=== PATIENT | male | born 1970 | race Caucasian/White ===

== ENCOUNTER 2025-03-12 23:29 | Emergency (ER) | payer MEDICAID, SELFPAY ==
[2025-03-12 23:29] VITALS: BP 147/92; PULSE 99; RESP 18; TEMP 36.8; O2SAT 99; BMI 31.6
--- NOTE | 2025-03-13 00:01 | RAD_ITS ---
PROCEDURE: ANKLE MIN 3 VIEWS 03/13/2025 REASON FOR EXAM: PAIN TECHNIQUE: ANKLE MIN 3 VIEWS Laterality: Left COMPARISON: None. FINDINGS: Soft tissue edema and swelling overlying the medial malleolus. Calcaneal spur formation. Enthesophyte formation at the calcaneal insertion of Achilles tendon. Normal visualized distal tibia and medial malleolus. Normal visualized distal fibula and lateral malleolus. Normal tibiotalar articulation and ankle mortise. Normal visualized talus. Normal visualized calcaneus. The visualized subtalar, talonavicular, calcaneocuboid and tarsal articulations are normal. RAD/Ankle min 3 Views IMPRESSION: Soft tissue edema and swelling overlying the medial malleolus. No radiographic evidence of an acute bone abnormality. Reading Location: [facility]
[2025-03-13 00:13] LABS: Hematocrit 42.3 % (40-54); Hemoglobin 14.5 g/dL (13.0-16.5); Immature Granulocytes Count 0.030 X10^3/uL (0.0-0.0); Mean Corp Hgb Conc 34.3 g/dL (32-36); Mean Corpuscular Volume 99.1 fL (80-94); Mean Platelet Vol. 9.0 fl (6.2-12.0); NRBC Flagged by Analyzer 0 % (0-5); Platelet Count 239 K/mm3 (150-450); RBC Distribution Width CV 12.6 % (11.6-14.6); RBC Distribution Width SD 45.7 fl (35.1-43.9); Red Blood Count 4.27 M/mm3 (4.6-6.2); White Blood Count 13.9 K/mm3 (4.4-11.0)
--- NOTE | 2025-03-13 00:28 | EX.ED.DYSGE1 ---
HPI History of Present Illness Chief Complaint: Edema Informant: patient Narrative Narrative: Patient is a 55-year-old male who reports that he has had left leg swelling for multiple years. He states he has had previous ultrasounds of the leg to rule out blood clot. He states that over the last few days he has had bilateral ankle pain that is worse with ambulation. He states that there has been no recent trauma. He denies any fevers or chills. He states that the swelling overall is at baseline if not slightly improved and he denies any recent procedures or injections. However because of the increased pain to both ankles he presents for evaluation [facility] Medical History Varicose vein of leg Medical History no medical history Home Medications ?Medication ?Instructions ?Recorded ?Last Taken ?Type amoxicillin 875 mg-potassium 1 tab PO BID 7 days #14 tabs 03/13/25 Unknown Rx clavulanate 125 mg tablet oxycodone-acetaminophen 5 mg-325 1 tab PO Q6H PRN pain 3 days #12 03/13/25 Unknown Rx mg tablet (Percocet) tabs Allergy/AdvReac Type Severity Reaction Status Date / Time No Known Allergies Allergy Verified 03/12/25 23:30 Social History Smoking Status: Current every day smoker tobacco type: cigarettes ROS ROS ED Constitutional Constitutional ED: Denies chills or fever(s) ENT ENT ED: Denies sore throat Cardiovascular Cardiovascular: Denies chest pain Respiratory/Chest Respiratory/Chest: Denies cough or dyspnea Gastrointestinal Gastrointestinal: Denies abdominal pain, diarrhea, nausea or vomiting Musculoskeletal Musculoskeletal: Reports other Details: Positive bilateral ankle pain and leg pain Positive bilateral leg swelling Integumentary Denies Abrasions or rash Neurologic Neurologic: Denies headache(s) Hematologic/Lymphatic Hematologic/Lymphatic: Denies easy bleeding or easy bruising EXAM Physical Exam Const Vital Signs: 03/12/25 23:29 03/12/25 23:54 03/13/25 01:00 Temperature 98.2 F Temperature Source Temporal Pulse Rate 99 70 Respiratory Rate 18 18 Respiratory Effort Normal Non-Labored Respiratory Pattern Normal Blood Pressure 147/92 H 144/92 H Blood Pressure Mean 110 109 Pulse Ox 99 97 Oxygen Delivery Method Room Air Room Air 03/13/25 02:00 Temperature Temperature Source Pulse Rate 70 Respiratory Rate 18 Respiratory Effort Respiratory Pattern Blood Pressure 121/64 H Blood Pressure Mean 83 Pulse Ox 97 Oxygen Delivery Method Room Air Positive well nourished and well developed General Appearance ED: well developed; Negative for pallor HEENT HEENT Narrative: Normocephalic atraumatic Eyes PERRL and EOMs intact bilaterally General Eye ED: Negative for scleral icterus Neck supple and no JVD Resp normal respiratory effort Resp Narrative: Breath sounds are diminished throughout with faint expiratory wheeze and rhonchi in the bilateral bases consistent with history of smoking However no signs of respiratory distress Cardio regular rate and regular rhythm GI normal to inspection, nondistended, normoactive bowel sounds, non-tender, non-distended and no masses GI Narrative: No organomegaly or fluid wave noted Auscultation: normoactive bowel sounds Palpation: soft Extremity Extremity Narrative: Patient has +3 pitting edema to the left lower extremity and +1 to the right. Patient does state that this is chronic in nature. Negative Homans' sign bilaterally All compartments are soft and compressible going against compartment syndrome There is no obvious signs of long bone injury such as bony deformity or joint effusion No overlying erythema or warmth to suggest cellulitis abscess or gout No lymphangitic streaking Capillary refill is less than 3 seconds bilaterally Neuro oriented x3, CN's II-XII intact bilaterally and no sensory deficits noted Sensorium / Orientation: alert Psych mental status grossly normal Skin no rashes or lesions noted and no wounds General Skin Exam: Negative for jaundice or pallor MDM MDM MDM Narrative Medical decision making narrative: Patient arrived to ER mildly hypertensive otherwise with stable vitals. She reported years of leg swelling with the left being worse than the right. However now he reports that there is increased swelling to the right leg and also he has had bilateral ankle pain without trauma. History and exam is most consistent with lymphedema. In order to rule out cirrhosis/ascites acute kidney injury or congestive heart failure basic labs were obtained. The patient denies any recent trauma or procedures and he does not have overlying erythema or warmth going against gout cellulitis or abscess and in order to ensure there is no signs of osteomyelitis or Charcot joint and x-ray was obtained. X-ray revealed no acute finding other than soft tissue swelling which is present on physical exam. The patient's white blood cell count is elevated at 13.9 and his lactic is slightly bumped at 2.7 but his ESR and CRP are normal. Moreover he does not have hypotension tachycardia or fever. The physical exam does not show redness or asymmetric warmth or lymphangitic streaking or crepitance. And range of motion is still present at the joint. Therefore this time I do not feel he has a septic joint and as he does not have an effusion on x-ray there is no fluid to tap. The physical exam also does not suggest gout as the pain is bilateral and there is no overlying soft tissue changes. In order to rule out DVT I will order a venous duplex but is not able to be performed at this time at night. As he states he has had ultrasounds before that do not show blood clot and at this time he denies recent travel surgery hormone use or even previous history of DVT/PE I do not feel there is need for anticoagulation but will order an outpatient venous duplex to ensure there is no DVT as the cause of his increased pain. In order to to ensure there is no developing infection I will place him on Augmentin based on his elevated white blood cell count. But as his ESR and CRP are normal his vitals are stable and he does not have outward findings of infection or x-ray changes to suggest osteomyelitis I do not feel there is need for emergent podiatry or orthopedic consultation. The patient was advised to follow-up with the family doctor to discuss referral to the lymphedema clinic as this is the most likely cause of his swelling but as he is hemodynamically stable there is no need for further intervention in the hospital and is otherwise safe for discharge. History & Record Review Discussion w/independent historian: Patient Lab Data Attestation: I reviewed the patient's lab results. Labs: Laboratory Results - last 24 hr 03/13/25 03/13/25 00:02 01:12 WBC 13.9 H RBC 4.27 L Hgb 14.5 Hct 42.3 MCV 99.1 H MCH 34.0 H MCHC 34.3 RDW Std Deviation 45.7 H RDW Coeff of Uma 12.6 Plt Count 239 MPV 9.0 Immature Gran % (Auto) 0.200 Neut % (Auto) 75.2 H Lymph % (Auto) 17.1 L Tripp % (Auto) 6.9 Eos % (Auto) 0.1 Baso % (Auto) 0.5 Absolute Neuts (auto) 10.4 H Absolute Lymphs (auto) 2.37 Nucleated RBC % 0 ESR 1 Sodium 142 Potassium 3.7 Chloride 106 Carbon Dioxide 24.7 Anion Gap 12 BUN 20 H Creatinine 1.03 Estim Creat Clear Calc 108.18 Est GFR (MDRD) Non-Af 85 BUN/Creatinine Ratio 19.2 Glucose 167 H Lactic Acid 2.7 H* Uric Acid 5.3 Calcium 9.2 Total Bilirubin 0.41 Direct Bilirubin 0.19 AST 26 ALT 14 Alkaline Phosphatase 84 C-React Prot Ext Range < 3.00 NT pro BNP II 298 Total Protein 6.3 Albumin 3.9 Globulin 2.3 Radiography Diagnostic Testing: Clinical Impression(s) from Imaging Studies Ankle X-Ray 03/13/25 00:01 IMPRESSION: Soft tissue edema and swelling overlying the medial malleolus. No radiographic evidence of an acute bone abnormality. Reading Location: [place] [id number] Left ankle x-rays interpreted by the emergency medicine physician reveals soft tissue swelling but no acute fracture or dislocation or joint effusion or moth-eaten appearance of the bone to suggest osteomyelitis Discharge Plan Triage Chief Complaint: Edema ED Provider: Paulie Cummings Dx/Rx/DC Orders Clinical Impression: Lymphedema, Tobacco abuse Instructions: ED Lymphedema Prescriptions: New amoxicillin-pot clavulanate 875-125 mg tablet 1 tab PO BID 7 Days Qty: 14 0RF oxycodone-acetaminophen [Percocet] 5-325 mg tablet 1 tab PO Q6H PRN (Reason: pain) 3 Days Qty: 12 0RF Other Ambulatory Orders: Venous Duplex US - Emiliano Extrem (Stat) Facility: [facility] - Location: [facility] Ordered By: Dr. Paulie Cummings Primary Care Provider: Care Physician,No Primary Referrals: Khurram Murphy MD [Non-Staff] - Activity Restrictions/Additional Instructions: Your workup today shows no sign of liver failure kidney failure or heart failure as the cause of your swelling. Based on the fact that this has been ongoing for multiple years the swelling is most likely from a disease process known as lymphedema. Discussed referral to the lymphedema clinic with your family doctor. There are no obvious findings of gout or soft tissue infection such as cellulitis or septic joint but with your white count being slightly elevated please take the antibiotic as directed in case there is developing infection that is not presented yet. Please obtain your outpatient venous duplex to ensure there is no blood clot either. Return to the ER should you have any further concerns such as worsening swelling development of unilateral redness or fever Print Language: Georgian Disposition Disposition: Home, Self Care Discharge Date/Time: 03/13/25 02:54
[2025-03-13 01:00] VITALS: BP 144/92; PULSE 70; RESP 18; O2SAT 97
[2025-03-13 01:11] LABS: AST(SGOT) 26 U/L (<=37); Alanine Aminotransfer ALT/SGPT 14 U/L (<=46); Albumin, Serum 3.9 g/dL (3.5-5.0); Alkaline Phosphatase 84 U/L (40-129); Anion Gap 12 (5-15); BUN 20 mg/dL (4-19); BUN/Creat Ratio 19.2 RATIO (10-20); Bilirubin, Direct 0.19 mg/dL (0.00-0.30); Calcium,Total 9.2 mg/dL (7.6-11.0); Carbon Dioxide 24.7 mmol/L (21.0-32.0); Chloride 106 mmol/L (98-108); Estimated Creatinine Clearance 108.18 ml/min (50-250); Globulin 2.3 g/dL (2.2-4.2); Glucose 167 mg/dL (70-99); Potassium 3.7 mmol/L (3.3-5.1)
[2025-03-13 02:00] VITALS: BP 121/64; PULSE 70; RESP 18; O2SAT 97
[2025-03-13 02:31] LABS: Uric Acid 5.3 mg/dL (3.5-7.2)
[2025-03-13 02:31] LABS: CRP < 3.00 mg/L (0.0-3.0)
[2025-03-13 02:32] LABS: Pro- Brain NATRIURETIC PEPTIDE 298 pg/mL (<=900)
[2025-03-13 02:47] VITALS: BP 120/67; PULSE 69; RESP 18; TEMP 36.6; O2SAT 97
[2025-03-13 05:18] LABS: Reflex Lactate? Y
== END 2025-03-13 02:54 | disposition home or self-care (01) ==
PROVIDERS: Emergency Provider Emergency Medicine; Visit Provider Emergency Medicine
DX: I89.0 Lymphedema, not elsewhere classified (principal); M25.572 Pain in left ankle and joints of left foot; M25.571 Pain in right ankle and joints of right foot; F17.210 Nicotine dependence, cigarettes, uncomplicated
CPT/HCPCS: 73610; 80048; 80076; 83605; 83880; 84550; 85025; 85652; 86140; 99285; A4216

== ENCOUNTER → 2025-03-13 | Outpatient (CLI) | payer MEDICAID, SELFPAY ==
--- NOTE | 2025-03-13 10:32 | VDLE_ITS ---
Reason For Study Reason For Study: BLE Swelling RIGHT LEFT GSV is normal. GSV is normal. CFV is compressible, spontaneous, phasic, competent CFV is compressible, spontaneous, phasic, competent, and demonstrates normal augmentation. and demonstrates normal augmentation. FV is compressible, spontaneous, phasic, competent FV is compressible, spontaneous, phasic, competent and demonstrates normal augmentation. and demonstrates normal augmentation. POP V is compressible, spontaneous, phasic, competent POP V is compressible, spontaneous, phasic, competent and demonstrates normal augmentation. and demonstrates normal augmentation. T/P Trunk is compressible. T/P Trunk is compressible. PTV is compressible. PTV is compressible. RT PerV is compressible. LT PerV is compressible. Nonvascularized anechoic area measuring approximately Multiple dilated but compressible varicose veins 7.54cm x 1.19cm noted at right medial knee. noted throughout Lt calf. Procedure This is a venous duplex using B-mode, color flow and spectral Doppler. Exam performed in department. The exam was diagnostic. A preliminary report was called and/or faxed to [facility] ED. VL/Venous Duplex US - Emiliano Extrem Interpretation Summary Deep veins of the lower extremities are bilaterally patent and compressible seg mentally. There is no evidence of deep vein thrombosis on either side. Valvular competence appears intact within the p roximal deep venous systems bilaterally. The great saphenous veins appear bilaterally patent and compressible segmentall y. A non-vascular, anechoic structure is noted medial to the right knee, measuring 7.54 cm x 1.19 cm. This may represent a hematoma or seroma. Clinical correlation is advised. Multiple large varicosities are noted throughout the le ft calf. Ordering Physician: Paulie Cummings Referring Physician: N/A Performed By: Rogelio Schroeder RVT
== END | disposition home or self-care (01) ==
LOC: CVS 10:32
PROVIDERS: Referring Provider Emergency Medicine; Visit Provider Emergency Medicine
DX: R60.9 Edema, unspecified (principal)
CPT/HCPCS: 93970